=== PATIENT | female | born 1995 ===

== ENCOUNTER 2019-02-18 10:25 | Emergency (ER) | payer OTHER ==
[~2019-02-18] VITALS: Ht 157.5 cm; Wt 46.3 kg
== END 2019-02-18 15:43 | disposition home or self-care (01) ==
LOC: ER 10:25
DX: N83.02 Follicular cyst of left ovary (principal); N83.01 Follicular cyst of right ovary; R10.2 Pelvic and perineal pain; R10.31 Right lower quadrant pain

== ENCOUNTER 2019-05-14 09:10 | Emergency (ER) | payer OTHER ==
[~2019-05-14] VITALS: Ht 152.4 cm; Wt 45.8 kg
== END 2019-05-14 17:33 | disposition home or self-care (01) ==
LOC: ER 09:10
DX: S80.02XA Contusion of left knee, initial encounter (principal); M25.562 Pain in left knee; M25.561 Pain in right knee; W22.8XXA Striking against or struck by other objects, initial encounter; Y93.89 Activity, other specified; Y92.89 Other specified places as the place of occurrence of the external cause; Y99.8 Other external cause status